=== PATIENT | female | born 1985 | race Caucasian/White ===

== ENCOUNTER 2017-01-08 15:16 | Emergency (ER) | payer MEDICAID ==
[~2017-01-08] VITALS: Ht 160 cm; Wt 100.4 kg
[2017-01-08 15:18] VITALS: BP 123/72
--- NOTE | 2017-01-08 17:00 | NUR ---
Patient ambulated to bed 8. RN evaluating patient at bedside.
--- NOTE | 2017-01-08 17:01 | NUR ---
31/F BIB MOTHER C/O HEADACHE x 2 DAYS. PT STATES SHE HAS N/V NO DIARRHEA, PHOTOPOBIA, UNILATERAL TO LEFT SIDE OF HEAD. PT DENIES TRAUMA OR INJURY.HX: MIGRAINE SINCE 14YEARS OLD PATIENT STATES NAUSEA BUT DENIES V/D; SKIN IS PINK/WARM/DRY; AAOX4 WITH EVEN AND STEADY GAIT; LUNGS CLEAR BL; HR EVEN AND REGULAR; PT DENIES ANY FEVER, CP, SOB, OR COUGH AT THIS TIME; PATIENT STATES PAIN OF 10/10 AT THIS TIME; VSS; PATIENT POSITIONED FOR COMFORT; HOB ELEVATED; BEDRAILS UP X2; BED DOWN. ER MD MADE AWARE OF PT STATUS.
--- NOTE | 2017-01-08 17:09 | NUR ---
Dr. Eric evaluating patient at bedside.
[2017-01-08] MEDS ORDERED: ONDANSETRON 4 MG ODT PO ONE (17:15)
[2017-01-08] MEDS ORDERED: SUMAtriptan 6 MG/0.5 ML VIAL SUBQ ONE (17:15)
[2017-01-08 18:45] VITALS: BP 112/72
--- NOTE | 2017-01-08 18:45 | NUR ---
Patient discharged with v/s stable. Written and verbal after care instructions given and explained. Patient alert, oriented and verbalized understanding of instructions. Ambulatory with steady gait. All questions addressed prior to discharge. ID band removed. Patient advised to follow up with PMD. Rx of FIORICET & SUMATRIPTAN SUCCINATE given. Patient educated on indication of medication including possible reaction and side effects. Opportunity to ask questions provided and answered.
== END 2017-01-08 18:45 | disposition home or self-care (01) ==
LOC: MED 15:16
DX: G43.909 Migraine, unspecified, not intractable, without status migrainosus (principal)
CPT/HCPCS: 81002; 81025; 96372; 99283; J3030; S0119